=== PATIENT | female | born 1935 | race Hispanic/Latino ===

== ENCOUNTER 2018-03-16 10:12 | Day surgery (SDC) | payer OTHER ==
[~2018-03-16] VITALS: Ht 157.5 cm; Wt 60.2 kg
[~2018-03-16 10:12] MED LIST: GLIP5TAB11 PO; LACT1CAP78 PO; LISI-613 PO; MULT-1258 PO; OMEP40CA37 PO; SODIUM CHLORIDE 0.9% 1000ML 1,000 ML IV ONE
[2018-03-16 10:37] VITALS: BP 143/70
[2018-03-16 11:20] VITALS: BP 100/55
== END 2018-03-16 12:00 | disposition home or self-care (01) ==
LOC: ENDO 10:12 → DAH 10:12 → ENDO 12:00
PROVIDERS: ATTEND Internal Medicine Gastroenterology
DX: K21.9 Gastro-esophageal reflux disease without esophagitis (principal); I10 Essential (primary) hypertension; E78.4 Other hyperlipidemia; E11.9 Type 2 diabetes mellitus without complications; F32.89 Other specified depressive episodes; K59.04 Chronic idiopathic constipation; Z79.84 Long term (current) use of oral hypoglycemic drugs
CPT/HCPCS: 43235; 82948 ×2; 93005; A4606; J7030